=== PATIENT | female | born 1985 ===

== ENCOUNTER 2018-01-25 17:57 | Emergency (ER) | payer MEDICAID, OTHER ==
[~2018-01-25] VITALS: Ht 157.5 cm; Wt 74.3 kg
[2018-01-25 18:29] LABS: MICROSCOPIC AUTO
[2018-01-25 18:36] LABS: CULTURE INDICATED? YES
[2018-01-25 18:43] LABS: ALBUMIN 3.8 g/dL (3.4-5.0); ANION GAP 9 mmol/L (5-15); CALCIUM 8.5 mg/dL (8.5-10.1); CHLORIDE 109 mmol/L (98-107); CREATININE 0.73 mg/dL (0.55-1.02)
[2018-01-25 18:54] LABS: BASOPHILS # (AUTO) 0.03 x10^3/uL (0-0.1); BASOPHILS % (AUTO) 0 % (0-1); EOSINOPHILS % (AUTO) 2 % (1-7); LYMPHOCYTES # (AUTO) 1.56 x10^3/uL (1-3.4); LYMPHOCYTES % (AUTO) 16 % (22-44); MD MORPH REVIEW ONLY; MEAN CORPUSCULAR HEMOGLOBIN 18.1 pg (27.0-34.8); MEAN CORPUSCULAR HGB CONC 30.5 g/dL (32.4-35.8); MEAN CORPUSCULAR VOLUME 59.3 fL (80-100); MEAN PLATELET VOLUME 8.3 fL (7.4-10.4); MONOCYTES # (AUTO) 0.53 x10^3/uL (0.2-0.8); MONOCYTES % (AUTO) 6 % (2-9); NEUTROPHILS # (AUTO) 7.42 x10^3/uL (1.8-6.8); NEUTROPHILS % (AUTO) 76 % (42-75); PLATELET COUNT 376 x10^3/uL (130-400); RED BLOOD COUNT 5.17 x10^6/uL (3.82-5.3); RED CELL DISTRIBUTION WIDTH 19.8 % (9.6-15.2)
[2018-01-25 18:56] LABS: ANISOCYTOSIS 2+; MICROCYTOSIS 2+; OVALOCYTES 1+
[2018-01-25 19:03] LABS: <PLATELET ESTIMATE> ADEQUATE; <PLT MORPHOLOGY> NORMAL PLT MORPH; HYPOCHROMIA 2+
[2018-01-25] MEDS ORDERED: ACETAMINOPHEN 500 MG TABLET ONE (20:16)
[2018-01-25] MEDS ORDERED: CEFDINIR 300 MG CAPSULE ONE (20:16)
[2018-01-25] MEDS ORDERED: PYRIDOXINE 25MG TABLET PO SCH (20:22)
[2018-01-25] MEDS ORDERED: HYDROcodone/APAP 5/325 TABLET PO ONE (20:30)
[2018-01-25] MEDS ORDERED: ACETAMINOPHEN 500 MG TABLET PO ONE (20:30)
[2018-01-25] MEDS ORDERED: ONDANSETRON ODT 4 MG PO ONE (20:30)
[2018-01-25] MEDS ORDERED: CEFDINIR 300 MG CAPSULE PO SCH (21:00)
[2018-01-25 21:27] VITALS: BP 135/80
[2018-01-25] MEDS ORDERED: CEFDINIR 300 MG CAPSULE PO ONE (22:00)
== END 2018-01-25 21:29 | disposition home or self-care (01) ==
LOC: ED 21:00
DX: N39.0 Urinary tract infection, site not specified (principal); Z32.01 Encounter for pregnancy test, result positive; R10.31 Right lower quadrant pain; Z90.49 Acquired absence of other specified parts of digestive tract
CPT/HCPCS: 36415; 76830; 80048; 81001; 82040; 84702; 84703; 85025; 86901; 87077; 87086; 87186; 99285

== ENCOUNTER 2018-01-27 18:00 | Emergency (ER) | payer OTHER ==
[~2018-01-27] VITALS: Ht 157.5 cm; Wt 74.7 kg
[2018-01-27 18:02] VITALS: BP 147/89
== END 2018-01-27 19:35 | disposition home or self-care (01) ==
LOC: ED 19:05
DX: Z32.01 Encounter for pregnancy test, result positive (principal)
CPT/HCPCS: 36415; 84702; 99283